=== PATIENT | female | born 1940 | race Caucasian/White ===

== ENCOUNTER 2018-07-10 08:49 | Outpatient (CLI) | payer MEDICARE, BC ==
[~2018-07-10] VITALS: Ht 162.6 cm; Wt 67.3 kg
[2018-07-10 10:03] VITALS: BP 168/79; Ht 162.6 cm; Wt 67.3 kg
== END 2018-07-10 11:15 | disposition home or self-care (01) ==
LOC: D.OPS 08:49
DX: M81.0 Age-related osteoporosis without current pathological fracture (principal); Z01.812 Encounter for preprocedural laboratory examination

== ENCOUNTER → 2019-02-10 14:01 | Outpatient (CLI) | payer MEDICARE, BC ==
[2018-07-10 10:03] VITALS: BMI 25.4
[2019-02-10 15:48] LABS: INR 2.85 (0.85-1.17); PROTIME 29.2 SECONDS (11.6-15.0)
== END | disposition home or self-care (01) ==
LOC: D.LABREF 14:01
DX: I48.0 Paroxysmal atrial fibrillation (principal); Z79.01 Long term (current) use of anticoagulants